=== PATIENT | male | born 1935 | race Caucasian/White ===

== ENCOUNTER 2018-06-20 11:19 | Emergency (ER) | payer MEDICARE ==
[2018-06-20 12:53] LABS: BASO # 0.1 K/uL (0.0-0.2); BASO % 1.1 % (0.0-2.0); EOS # 0.2 K/uL (0.0-0.7); EOS % 4.4 % (0.0-4.0); HEMOGLOBIN 14.8 g/dL (12.0-18.0); LYMPH # 1.3 K/uL (1.0-4.3); LYMPH % 25.8 % (20.0-40.0); MEAN CELL VOLUME 88.8 fL (80.0-94.0); MEAN CORPUSCULAR HEMOGLOBIN 30.3 pg (27.0-31.0); MEAN CORPUSCULAR HGB CONC 34.1 g/dL (33.0-37.0); MEAN PLATELET VOLUME 8.6 fL (7.2-11.7); MONO # 0.4 K/uL (0.0-0.8); MONO % 7.8 % (0.0-10.0); NEUT # 3.2 K/uL (1.8-7.0); NEUT % 60.9 % (50.0-75.0); NRBC % 0.1 % (0.0-2.0); RBC 4.87 Mil/uL (4.40-5.90); RED CELL DISTRIBUTION WIDTH 13.9 % (11.5-14.5); WHITE BLOOD COUNT 5.2 K/uL (4.8-10.8)
[2018-06-20 13:05] LABS: ALB/GLOB RATIO 1.5 (1.0-2.1); ALBUMIN 4.4 g/dL (3.5-5.0); ALT/SGPT 19 U/L (21-72); AST/SGOT 32 U/L (17-59); BLOOD UREA NITROGEN 15 mg/dL (9-20); CALCIUM 9.5 mg/dl (8.6-10.4); GFR NON-AFRICAN AMERICAN 58
[2018-06-20 13:07] LABS: GRANULAR CAST 1 /lpf (0-1); SQUAMOUS EPITHIAL 1 /hpf (0-5); URINE BACTERIA FEW (<OCC); URINE BILIRUBIN NEGATIVE (NEGATIVE); URINE BLOOD 1+ (NEGATIVE); URINE CLARITY Hazy (Clear); URINE COLOR Amber (YELLOW); URINE GLUCOSE (UA) NORMAL (Normal); URINE LEUKOCYTE ESTERASE 3+ Leu/uL (Negative); URINE PROTEIN 1+ mg/dL (NEGATIVE); URINE UROBILINOGEN NORMAL mg/dL (0.2-1.0)
--- NOTE | 2018-06-20 13:30 | C.PDOC ---
History Of Present Illness 83yo M PMH HTN, GERD c/o suprapubic pain and burning on urination. Pain started 20 days ago, which he describes as a pressure 8/10 at it's worst, currently not experiencing unless pressing on it. He states he urinates about 4 times a day as well as 2 times overnight. There is occasionally burning on urination, and a foul odor. Pain stays in the suprapubic region without radiation to the back or groin. Admits numbness in his feet b/l as a chronic issue. Denies n/v, LEWIS, dizziness. He came to the ED with outpatient imaging orders. Was advised against that today; instructed to call the number on the paper to schedule an appointme nt. <Christie Umaña - Last Filed: 06/20/18 16:52> History Per: Patient Onset/Duration Of Symptoms: Days Current Symptoms Are (Timing): Better <Christie Umaña - Last Filed: 06/20/18 16:52> <Rudolph Hobbs DO - Last Filed: 06/20/18 18:27> Time Seen by Provider: 06/20/18 13:15 Chief Complaint (Nursing): Abdominal Pain Past Medical History Vital Signs: Last Vital Signs Temp 98.8 F 06/20/18 11:32 Pulse 103 H 06/20/18 11:32 Resp 19 06/20/18 11:32 BP 121/70 06/20/18 11:32 Pulse Ox 96 06/20/18 11:32 - Medical History PMH: HTN Family History: States: Unknown Family Hx - Social History Hx Alcohol Use: No Hx Substance Use: No - Immunization History Hx Tetanus Toxoid Vaccination: No Hx Influenza Vaccination: No Hx Pneumococcal Vaccination: No <Christie Umaña - Last Filed: 06/20/18 16:52> Vital Signs: Last Vital Signs Temp 98.3 F 06/20/18 14:51 Pulse 72 06/20/18 14:51 Resp 16 06/20/18 14:51 BP 167/91 H 06/20/18 14:51 Pulse Ox 96 06/20/18 16:53 <Rudolph Hobbs DO - Last Filed: 06/20/18 18:27> Review Of Systems Except As Marked, All Systems Reviewed And Found Negative. Constitutional: Positive for: Weakness. Negative for: Fever, Chills Eyes: Negative for: Pain, Vision Change ENT: Negative for: Ear Pain, Ear Discharge Cardiovascular: Negative for: Chest Pain, Palpitations, Orthopnea Respiratory: Negative for: Cough, Shortness of Breath, Wheezing Gastrointestinal: Positive for: Abdominal Pain. Negative for: Nausea, Vomiting, Diarrhea, Constipation Genitourinary: Positive for: Dysuria, Frequency. Negative for: Incontinence, Hematuria, Penile Discharge Musculoskeletal: Negative for: Shoulder Pain, Back Pain Neurological: Negative for: Weakness, Change in Speech, Confusion, Headache Psych: Negative for: Anxiety, Depression <Christie Umaña - Last Filed: 06/20/18 16:52> Physical Exam - Physical Exam Appears: Well, Non-toxic, No Acute Distress Skin: Normal Color, Warm, Dry Head: Atraumatic, Normacephalic Eye(s): bilateral: Normal Inspection, PERRL, EOMI Ear(s): Right: Normal (decreased hearing L, chronic) Nose: Normal Oral Mucosa: Moist Throat: Normal Neck: Normal Cardiovascular: Rhythm Regular, Rhythm Irregular, No Murmur Respiratory: Normal Breath Sounds, No Rales, No Rhonchi, No Wheezing Gastrointestinal/Abdominal: Bowel Sounds, Soft, Tenderness (suprapuic TTP), No Distention, No Guarding, No Rebound Pulses: Left Radial: Normal, Right Radial: Normal, Left Dorsalis Pedis: Normal, Right Dorsalis Pedis: Normal Neurological/Psych: Oriented x3, Normal Speech, Normal Cognition <Christie Umaña - Last Filed: 06/20/18 16:52> ED Course And Treatment - Laboratory Results Result Diagrams: 06/20/18 12:43 06/20/18 12:43 O2 Sat by Pulse Oximetry: 96 <Christie Umaña - Last Filed: 06/20/18 16:52> - Laboratory Results Result Diagrams: 06/20/18 12:43 06/20/18 12:43 <Rudolph Hobbs DO - Last Filed: 06/20/18 18:27> Medical Decision Making Medical Decision Making: EKG NSR, CMP, CBC unremarkable, Trop neg, CXR neg UA 3+ LE, 85 WBC, 11-20 hyaline casts Patient has cystitis and is dehydrated. <Christie Umaña - Last Filed: 06/20/18 16:52> Disposition - Disposition Disposition Time: 14:40 <Christie Umaña - Last Filed: 06/20/18 16:52> - Disposition Disposition Time: 13:40 <Rudolph Hobbs DO - Last Filed: 06/20/18 18:27> - [facility] - Disposition: HOME/ ROUTINE Condition: IMPROVED Additional Instructions: ABBY ALTAMIRANO, thank you for letting us take care of you today. The emergency medical care you received today was directed at your acute symptoms. If you were prescribed any medication, please fill it and take as directed. It may take several days for your symptoms to resolve. Return to the Emergency Department if your symptoms worsen, do not improve, or if you have any other problems. Please contact your doctor or call one of the physicians/clinics you have been referred to that are listed on the Patient Visit Information form that is included in your discharge packet. Bring any paperwork you were given at discharge with you along with any medications you are taking to your follow up visit. Our treatment cannot replace ongoing medical care by a primary care provider outside of the emergency department. Thank you for allowing the [facility] team to be part of your care today. Follow up with your primary care doctor in 5-7 days for re-evaluation and further management. Prescriptions: Ibuprofen [Motrin] 600 mg PO Q6 PRN #20 tab PRN Reason: Pain, Moderate (4-7) Sulfamethoxazole/Trimethoprim [Bactrim DS 800 mg-160 mg] 1 tab PO BID #14 tab Instructions: Acute Cystitis (DC) Forms: [facility] (Syriac) - Clinical Impression Clinical Impression: UTI (urinary tract infection) - PA / CAREER CENTER ADVISOR / Resident Statement MD/ has reviewed & agrees with the documentation as recorded. / has examined the patient and agrees with the treatment plan. <Christie Umaña - Last Filed: 06/20/18 16:52>
--- NOTE | 2018-06-20 13:49 | RAD ---
HISTORY: r/o infiltrate COMPARISON: No prior. TECHNIQUE: Chest, one view. FINDINGS: Examination limited by habitus and hypoinflation. LUNGS: Mild interstitial prominence versus vascular crowding due to hypoinflation. Bibasilar atelectasis. PLEURA: No significant pleural effusion identified. No definite pneumothorax . CARDIOVASCULAR: Mild cardiomegaly. Atherosclerotic calcifications of the aorta. OSSEOUS STRUCTURES: No acute osseous abnormality identified. VISUALIZED UPPER ABDOMEN: Unremarkable. OTHER FINDINGS: None. IMPRESSION: Mild interstitial prominence versus vascular crowding due to hypoinflation. Bibasilar atelectasis. Hypoinflation.
[2018-06-20 14:52] VITALS: BP 167/91; PULSE 72; RESP 16; TEMP 98.3
[2018-06-20 16:53] VITALS: O2SAT 96
--- NOTE | 2018-06-22 14:55 | CARD ---
APPROVED REPORT Date of service: 06/20/2018 EKG Measurement Heart [id number] <Conclusion> Normal sinus rhythm Normal ECG
== END 2018-06-20 14:52 | disposition home or self-care (01) ==
LOC: C.ER 11:19
DX: N39.0 Urinary tract infection, site not specified (principal); I10 Essential (primary) hypertension; K21.9 Gastro-esophageal reflux disease without esophagitis